=== PATIENT | female | born 1990 | race African-American/Black ===

== ENCOUNTER 2017-09-11 22:47 | Emergency (ER) | payer OTHER ==
[~2017-09-11] VITALS: Ht 167.6 cm; Wt 104.8 kg
[~2017-09-11 22:47] MED LIST: CITRATE OF MAG296 ML PO; COLACE 100 MG100 MG PO; MACROBID 100 M100 M1 PO; NAPROSYN500 MG PO; NOHOMEMEDICATIONS; NORFLEX100 MG PO; PHENERGAN 25 MG25 M1 PO; PRILOSEC40 MG PO; ULTRAM 50MG TAB50 MG PO
[2017-09-12 00:34] VITALS: BP 114/87
== END 2017-09-12 00:38 | disposition home or self-care (01) ==
LOC: ER 22:47
DX: J02.9 Acute pharyngitis, unspecified (principal)